=== PATIENT | female | born 1995 | race Caucasian/White ===

== ENCOUNTER 2025-01-22 13:03 | Inpatient (IN) | payer MEDICAID, OTHER ==
[2025-01-22] MEDS ORDERED: MAG HYDROX/AL HYDROX/SIMETH 355 ML BOTTLE PO PRN (14:21)
[2025-01-22] MEDS ORDERED: HALOPERIDOL LACTATE 5 MG/ML 1 ML VIAL IM PRN (14:21)
[2025-01-22] MEDS ORDERED: haloperidoL 5 MG TAB PO PRN (14:21)
[2025-01-22] MEDS ORDERED: IBUPROFEN 600 MG TAB PO PRN (14:21)
[2025-01-22] MEDS ORDERED: MAGNESIUM HYDROXIDE 2,400 MG/30 ML CUP PO PRN (14:21)
[2025-01-22] MEDS ORDERED: LORazepam 1 MG TAB PO PRN (14:21)
[2025-01-22] MEDS ORDERED: ACETAMINOPHEN TAB 325 MG TAB PO PRN (14:21)
[2025-01-22] MEDS ORDERED: LORazepam 2 MG/ML INJ IM PRN (14:26)
[2025-01-22] MEDS: OXcarbazepine 300 MG TAB PO SCH (21:45)
[2025-01-22] MEDS ORDERED: ALBUTEROL NEBULIZED 2.5 MG/3 ML INHALATION PRN (22:24)
[2025-01-22] MEDS: ALBUTEROL INHALER 60 PUFF/8 GM INHALER (MHU) INHALATION PRN (22:36)
[2025-01-23 08:20] LABS: Basophils % (A) 1.1 %; Eosinophils # (A) 0.26 10*3/uL (0.04-0.35); Eosinophils % (A) 2.8 %; HGB 13.1 g/dL (12.0-15.0); Lymphocytes # (A) 1.97 10*3/uL (0.90-5.00); MCH 26.4 pg (27.0-32.0); MCHC 32.8 g/dL (32.0-37.0); MCV 80.5 fL (80.0-97.0); Mean Platelet Volume 11.4 fL (9.5-12.2); Monocytes # (A) 0.69 10*3/uL (0.20-1.00); Monocytes % (A) 7.4 %; Neutrophils # (A) 6.31 10*3/uL (1.80-7.70); Neutrophils % (A) 67.3 %; Platelet Count 255 10*3/uL (140-440); RBC 4.97 10*6/uL (4.10-5.20); RDW 13.5 % (11.5-14.5); WBC 9.37 10*3/uL (4.50-10.00)
[2025-01-23 08:55] LABS: ALT 18 U/L (4-34); AST 19 U/L (14-36); African American GFR (CKD) >90 (>60 ml/min/1.73 sqM); Albumin 3.8 g/dL (3.5-5.0); Alkaline Phosphatase 56 U/L (38-126); Anion Gap 9 mmol/L; Bilirubin, Delta 0.1 mg/dL (0.0-0.2); Bilirubin,Unconjugated 0.3 mg/dL (0.0-1.1); Blood Urea Nitrogen 10 mg/dL (7-17); Calcium 9.1 mg/dL (8.4-10.2); Carbon Dioxide 23 mmol/L (22-30); Chloride 107 mmol/L (98-107); Glucose 91 mg/dL (74-99); Non-African American GFR(CKD) >90 (>60 ml/min/1.73 sqM); Potassium 4.1 mmol/L (3.5-5.1); Sodium 139 mmol/L (137-145); Total Bilirubin 0.4 mg/dL (0.2-1.3); Total Protein 6.6 g/dL (6.3-8.2)
[2025-01-23] MEDS: PANTOPRAZOLE 40 MG TABLET PO SCH (10:10)
[2025-01-23] MEDS: NICOTINE 14MG/24HR PATCH TRANSDERM SCH (10:10)
[2025-01-23] MEDS: DULoxetine HCL 60 MG CAPSULE.DR PO SCH (10:10)
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
[2025-01-23] MEDS: lamoTRIgine 25 MG TAB PO SCH (11:35)
[2025-01-23] MEDS: ONDANSETRON ODT 4 MG TAB PO PRN (14:16)
[2025-01-23 15:24] LABS: Chol/HDL Ratio 3.54 Ratio; LDL Cholesterol,Calculated 83.9 mg/dL (0.0-131.0)
[2025-01-23] MEDS: MIRTAZAPINE 15 MG TAB PO SCH (22:09)
--- NOTE | 2025-01-24 13:56 | P.PN ---
Progress Note - Text Progress Note Date: 01/24/25 Chief complaint: Suicidal thoughts Interval History: Patient was seen wandering the hallways and was directable and agreeable to speak with ghost writer in the office. The patient restarted her medications. She denies any side effects. She notes that she is attending groups. Overall she is feeling "better". She notes that she does not feel as anxious or depressed. She currently rates her depression 5/10 and anxiety 3/10 with 10 being worse (previous both 10/10). She notes that she is not having suicidal thoughts. She feels that her sleep, energy, appetite and concentration are normal. We did discuss roadblocks in her life including why she is unable to keep stable employment. Patient demonstrated good insight that she is argumentative. She does have the urge to become a recreational therapist. She is able to identify that some of these jobs that she is taking are medial and stepping blocks to her goal. She would like to start with going to a group home and seek out employment. Mental Status Exam: General Appearance: Patient appears to be stated age is alert, directable, and cooperative. Behavior: Patient appeared slightly restless but overall relaxed and able to communicate comfortably. Speech: Patient's speech is fluent and nonpressured. Mood/Affect: Mood is improving mildly, affect is congruent and constricted. Suicidality/Homicidality: Patient denies having any suicidal or homicidal ideation intent or plan. Perceptions: Patient denies any visual hallucinations and denies any auditory hallucinations Though content/process: There is no evidence of any delusional thought content and thought process is linear and goal-directed. Memory and concentration: AOX3, grossly intact for the purposes of this session Judgment and insight: Improving mildly Diagnoses: Major depressive disorder recurrent moderate episode Generalized anxiety disorder Borderline personality disorder Cannabis use disorder Binge drinking Tobacco use disorder Assessment: Speaking with the patient she seems able to identify barriers in her life for success but struggles on doing these. Restarting the medications and being in a stable environment have improved her mood and anxiety. Will continue hospitalization in order to prevent relapse. PLAN: -Patient is admitted under involuntary status to MHU for stabilization of psychiatric symptoms and safety. Patient has signed adult voluntary form and medication consent and is placed in patient's chart. -Medications : Continue Lamotrigine 25 mg take 1 tablet by mouth once daily for mood stabilization Mirtazapine 15 mg take 1 tablet by mouth at bedtime for insomnia/anxiety/depression Hydroxyzine 25 mg take 1 tablet by mouth as needed 4 times daily for anxiety -Ativan and Haldol PRN for agitation/aggression -Will offer patient subtance use rehab -Patient was informed of the risks, benefits and side effects of the medication and patient verbally consented to taking the medications. Patient signed med consent form and was placed in chart. -Internal Medicine consult to perform medical evaluation and physical. -NRT -nicotine patch -SW on board for discharge planning. Encourage patient to participate in groups to work on coping skills.
[2025-01-24] MEDS: hydrOXYzine HCL 25 MG TAB PO PRN (16:21)
[2025-01-24 21:49] VITALS: RESP 18
[2025-01-25 09:55] VITALS: BP 106/72; PULSE 86; TEMP 98.2
--- NOTE | 2025-01-25 12:52 | P.DS ---
Providers Date of admission: 01/22/25 21:26 Admission HPI: Admission note was completed by Dr. Cramer "Patient presented to the [facility] noting that she was having suicidal thoughts (even walking into traffic or overdosing). [facility] and her car was taken. She is currently homeless. Patient notes that she is glad that she did not respond to the suicidal thoughts but sometimes not. She notes that her preventative factor is her daughter. She notes that if she left today she is unsure whether she would harm herself. She notes that she has been depressed for the last 3 years and most recently this depression is increased. She notes that she battles anxiety on a regular basis. She notes that she does not have any social supports at this time. She rates her depression over the last 2 weeks 10/10 and her anxiety 8/10 with 10 being the worst. On average she notes that she is getting 3 to 4 hours of sleep at night. She notes that her appetite is decreased and she feels fatigued. She describes her concentration as "okay". She feels chronically worthless. She notes bouts of crying and feelings of guilt. She denies any homicidal ideations or access to guns." Hospital course: Upon admission to the unit patient was directable and agreeable to commence t reatment and signed adult voluntary form. Patient got along well with other patients on the unit and followed unit protocol. Patient was compliant with the medications and denied any side effects throughout hospital course. Patient was restarted on Lamotrigine 25 mg once daily, Mirtazapine 15 mg at bedtime and hydroxyzine as needed. Patient spoke of her stressors and engaged in therapy both group and individual. Patient was also seen by medical team for history and physical exam. Throughout the course of the hospitalization patient gradually improved with regards to mood, anxiety, sleep and returned back to their baseline level of functioning became more future oriented with improved insight and judgment. On the day of discharge patient denied any suicidal or homicidal ideations intent or plan denied any auditory or visual hallucinations. Patient endorsed wanting to live for their health and family. The patient denied any access to guns or weapons. Patient denied any paranoia and did not endorse any delusions. Patient does have a significant history of substance abuse and was counseled on abstaining from all substances including alcohol and marijuana. Patient was offered however declined inpatient substance-abuse rehab. Patient was also counseled on the medications and need for regular compliance and was encouraged to follow-up with their outpatient appointment for mental health and also for primary care. The patient will be sent to assisted and other resources have been provided. Day of discharge patient denied any suicidal or homicidal ideations. She notes that she is not depressed anxious. She notes no side effects with medications. She notes that her sleep, energy, appetite and concentration are normal. She was able to voice a safety plan including calling 911 or [phone]. Mental status exam: General Appearance: Patient appears to be her stated age is alert, pleasant, and cooperative. Patient is in no acute distress and has improved hygiene and grooming Behavior: Patient is calmly seated without any agitated behavior. Speech: Patient's speech is fluent and nonpressured. Mood/Affect: Patient reports their mood is "better good", affect is congruent and euthymic. Suicidality/Homicidality: Patient denies having any suicidal or homicidal ideation intent or plan. Perceptions: Patient denies any auditory or visual hallucinations. Though content/process: There is no evidence of any delusional thought content and thought process is linear and goal-directed. More future oriented Memory and concentration: AOX3, grossly intact for the purposes of this session. Can spell "WORLD" backwards correctly. Judgment and insight: Chronically poor, however has improved with guarded prognosis Diagnoses: Major depressive disorder recurrent moderate episode Generalized anxiety disorder Borderline personality disorder Cannabis use disorder Binge drinking Tobacco use disorder Plan: -Continue with discharge today as patient has improved and stabilized psychiatrically and is not currently an imminent threat to themself and/or others. Patient will remain at chronically elevated risk for harm to self and/or others due to their impulsivity and substance abuse. -Continue medications: Lamotrigine 25 mg take 1 tablet by mouth once daily for mood stabilization Mirtazapine 15 mg take 1 tablet by mouth at bedtime for insomnia/anxiety/depression Hydroxyzine 25 mg take 1 tablet by mouth as needed 4 times daily for anxiety -Patient was counseled on the need for medication compliance and appropriate follow-up at mental health and also primary care for medical issues. Patient verbalized understanding and agreed. -Social work to help coordinate patients discharge today. also to ensure safe home environment that guns/weapons are either removed from the home or locked away. Social work also to arrange for patients follow up appointments with [facility] for psychiatric care along with follow up with primary care provider. -Patient counseled on abstaining from recreational drugs and marijuana and alcohol. Was informed/educated on the adverse effects on their physical and mental health. Patient verbally agreed and understood. Patient was offered substance abuse treatment however declined at this time. -Patient was instructed to return to the hospital or seek immediate medical care if their psychiatric or medical symptoms do worsen or reoccur. Attending physician: David Diego MD Consults: 01/22/25 14:21 Consult Physician Routine Consulting Provider: George Mckeon Consult Reason/Comments: H&P, medical managment Do you want consulting provider notified?: Yes Primary care physician: Stated None - Discharge Diagnosis(es) (1) Borderline personality disorder Current Visit: Yes Status: Chronic Priority: Medium (2) MIKE (generalized anxiety disorder) Current Visit: Yes Status: Chronic Priority: Medium (3) Major depressive disorder, recurrent Current Visit: No Status: Chronic Priority: Medium Plan - Discharge Summary Discharge Rx Participant: Yes New Discharge Prescriptions: No Action Fluticasone/Umeclidin/Vilanter [Trelegy Ellipta 100-62.5-25] 1 puff INHALATION RT-DAILY Albuterol Nebulized [Ventolin Nebulized] 2.5 mg INHALATION RT-Q6H PRN PRN Reason: Shortness Of Breath Or Wheezing Albuterol Inhaler [Ventolin Hfa Inhaler] 1 - 2 puff INHALATION RT-Q4H PRN PRN Reason: Wheezing lamoTRIgine [LaMICtal] 100 mg PO DAILY Montelukast [Singulair] 10 mg PO HS Discharge Medication List Albuterol Inhaler [Ventolin Hfa Inhaler] 1 - 2 puff INHALATION RT-Q4H PRN 01/22/25 [History] Albuterol Nebulized [Ventolin Nebulized] 2.5 mg INHALATION RT-Q6H PRN 01/23/25 [History] Fluticasone/Umeclidin/Vilanter [Trelegy Ellipta 100-62.5-25] 1 puff INHALATION RT-DAILY 01/23/25 [History] Montelukast [Singulair] 10 mg PO HS 01/23/25 [History] lamoTRIgine [LaMICtal] 100 mg PO DAILY 01/23/25 [History] Activity/Diet/Wound Care/Special Instructions: Avoid the use of street drugs and alcohol. Take all medications as prescribed. When you are in need of refills on your medications, please contact your medical provider and/or outpatient psychiatrist/provider to have this done. Please go to your scheduled outpatient appointment for aftercare treatment. If symptoms return or become worse, call the crisis line at and/or go to the nearest emergency room for evaluation. National Suicide Hotline [address] [facility] confidentiality statement: "The information contained in this c ommunication, including attachments, is confidential, may be privileged, and is intended only for the use of the named recipient(s). Unauthorized use, disclosure, forwarding or copying is strictly prohibited and may be unlawful. If you have received this communication in error, please notify me IMMEDIATELY at the phone number or pager listed above.
== END 2025-01-25 14:35 | disposition home or self-care (01) | DRG 751 ==
LOC: 3MHU 21:26
PROVIDERS: ADMIT Psychiatry & Neurology Psychiatry; ATTEND Psychiatry & Neurology Psychiatry
DX: F33.1 Major depressive disorder, recurrent, moderate (principal); F41.1 Generalized anxiety disorder; F43.10 Post-traumatic stress disorder, unspecified; F60.3 Borderline personality disorder; F17.290 Nicotine dependence, other tobacco product, uncomplicated; G47.00 Insomnia, unspecified; R45.851 Suicidal ideations; E66.9 Obesity, unspecified; F12.10 Cannabis abuse, uncomplicated; Z56.0 Unemployment, unspecified; Z59.00 Homelessness unspecified; Z79.899 Other long term (current) drug therapy; Z91.51 Personal history of suicidal behavior; Z91.52 Personal history of nonsuicidal self-harm; Z68.34 Body mass index [BMI] 34.0-34.9, adult; Z65.3 Problems related to other legal circumstances; Z63.8 Other specified problems related to primary support group; Z62.810 Personal history of physical and sexual abuse in childhood; Z28.21 Immunization not carried out because of patient refusal
CPT/HCPCS: 80053; 80061; 80183; 82248; 83036; 84443; 85025